=== PATIENT | female | born 2000 | race Caucasian/White ===

== ENCOUNTER → 2020-12-27 | Outpatient (CLI) | payer BC ==
[~2020-12-27] MED LIST: ACET325UDC; ALBU90OI INH; AMOC200S75 PO; AZIT250 PO; CEPH250A PO; CEPH500 PO; NITR100CA PO; ONDA4; ONDA8 PO; OXYBSY; RXAMOCLASU PO; SULTRIDS PO; SULTRIEL PO
== END ==
LOC: LAB 12:45 → LAB SHORT 12:45
DX: N39.0 Urinary tract infection, site not specified (principal)
CPT/HCPCS: 87077; 87086; 87186